=== PATIENT | female | born 1955 | race Caucasian/White ===

== ENCOUNTER 2021-07-27 11:44 | Emergency (ER) | payer OTHER, SELFPAY ==
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
[2021-07-27 11:46] VITALS: BP 168/77; PULSE 84; RESP 20; TEMP 36.2; O2SAT 100
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
[2021-07-27] MEDS: KETOROLAC 30 MG/ML VIAL (*BKC) IM (13:03)
[2021-07-27] MEDS: diazePAM INJ (*CRX) 10 MG/2 ML SYRINGE 5 MG IM (13:03)
[2021-07-27 14:35] VITALS: BP 160/70; PULSE 80; RESP 19; O2SAT 99
== END 2021-07-27 14:35 | disposition home or self-care (01) ==
PROVIDERS: Emergency Provider Emergency Medicine; PCP Family Medicine
DX: S16.1XXA Strain of muscle, fascia and tendon at neck level, initial encounter (principal); S39.012A Strain of muscle, fascia and tendon of lower back, initial encounter; R51.9 Headache, unspecified; V49.40XA Driver injured in collision with unspecified motor vehicles in traffic accident, initial encounter
CPT/HCPCS: 70450; 72125; 72131; 96372; 99284; J1885; J3360

== ENCOUNTER 2022-07-01 13:59 | Outpatient (CLI) | payer MEDICARE, SELFPAY ==
[2022-07-01 14:54] LABS: SARS-CoV-2 RNA PCR Positive
== END 2022-07-01 14:00 | disposition home or self-care (01) ==
PROVIDERS: PCP Family Medicine; Visit Provider Nurse Practitioner Gerontology
DX: U07.1 COVID-19 (principal)
CPT/HCPCS: U0003; U0005

== ENCOUNTER 2022-07-08 10:46 | Outpatient (CLI) | payer MEDICARE, SELFPAY ==
[2022-07-08 11:41] LABS: SARS-CoV-2 RNA PCR Positive
== END 2022-07-08 10:47 | disposition home or self-care (01) ==
PROVIDERS: PCP Family Medicine; Visit Provider Nurse Practitioner Gerontology
DX: U07.1 COVID-19 (principal)
CPT/HCPCS: U0003; U0005

== ENCOUNTER 2023-03-28 21:18 | Emergency (ER) | payer MEDICARE, SELFPAY ==
--- NOTE | ~2023-03-28 | CT_ITS ---
EXAMINATION: CT thoracic spine wo con DATE: 03/29/2023 00:29 INDICATION: Fell off horse. Mid back pain TECHNIQUE: Computed tomography (CT) of the thoracic spine was performed without intravenous contrast. The mA was adjusted according to patient size. Iterative reconstruction technique was employed. Exam dose: 1187.72 mGy-cm total exam DLP. Thoracic spine COMPARISON: None FINDINGS: There is severe degenerative disc disease at C6-7. There is minimal anterolisthesis at C7-T1. There is moderate degenerative spurring of the thoracic spine. No thoracic spine fracture is evident. Moderate anterior wedge chronic compression fracture deformity of L1. Severe degenerative disc diseas e at L1-2 and moderately severe degenerative disease at L2-3. Small sliding hiatal hernia. IMPRESSION: No recent fracture of the thoracic or upper lumbar spine is evident Chronic moderately prominent anterior wedge compression fracture of L1 Severe degenerative disc disease at C6-7, multilevel moderate degenerative disease of the thoracic an d to a greater extent upper lumbar spine Reviewed, dictated and finalized at Location A. Reviewed, dictated and finalized at location A. IMPRESSION: No recent fracture of the thoracic or upper lumbar spine is eviden t Chronic moderately prominent anterior wedge compression fracture of L1 Severe degenerative disc disease at C6-7, multilevel moderate degenerative dise ase of the thoracic and to a greater extent upper lumbar spine
[2023-03-28 21:27] VITALS: BP 185/78; PULSE 77; RESP 20; TEMP 36.1; O2SAT 100
[2023-03-28 23:17] VITALS: BP 178/73; PULSE 82; PULSE 88; RESP 18; TEMP 37.1; O2SAT 100
[2023-03-29] VITALS (11 sets, daily range): BP systolic 128–163; BP diastolic 65–68; PULSE 71–87; RESP 12–18; TEMP 37; O2SAT 97–100
[2023-03-29] MEDS: KETOROLAC 30 MG/ML VIAL (*BKC) IM (00:05)
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
== END 2023-03-29 02:56 | disposition home or self-care (01) ==
PROVIDERS: Emergency Provider Physician Assistant; PCP Family Medicine
DX: S22.008A Other fracture of unspecified thoracic vertebra, initial encounter for closed fracture (principal); I10 Essential (primary) hypertension; E78.5 Hyperlipidemia, unspecified; V80.010A Animal-rider injured by fall from or being thrown from horse in noncollision accident, initial encounter
CPT/HCPCS: 72128; 96372; 99284; J1885

== ENCOUNTER 2024-01-02 14:44 | Outpatient (CLI) | payer MEDICARE, SELFPAY ==
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
== END 2024-01-02 14:45 | disposition home or self-care (01) ==
LOC: ANHIMG 14:46
PROVIDERS: PCP Family Medicine; Visit Provider Student in an Organized Health Care Education/Training Program
DX: R05.9 Cough, unspecified (principal)
CPT/HCPCS: 71046

== ENCOUNTER 2024-10-11 17:37 | Outpatient (CLI) | payer MEDICARE, SELFPAY ==
[2024-10-11 18:38] LABS: Influenza A QL RT-PCR Negative (Negative); Influenza B QL RT-PCR Negative (Negative); RSV RNA, RT-PCR Negative (Negative); SARS-CoV-2 RNA PCR Negative (Negative)
--- OUTSIDE RECORDS SUMMARY | 2024-10-11 18:58 | XMS_ITS | Encounter Summary ---
Author Organization [facility] Address [address] [place] [address] Care Team Providers Care Insulation Cutter Name Role Phone Mimi Trimble MD Primary Care Provider [phone]- [phone] Encounter Details Date Type Department Care Team (Late st Contact Info) Description 03/28/1998 Outpatient Historical [facility] [place] [facility] Social History Tobacco Use Types Packs/Day Years Used Date Smoking Tobacco: Never Assessed Comments Unknown Sex and Gender Information Value Date Recorded Sex Assigned at Not on file Legal Sex Female 4:11 AM SENIOR DIRECTOR CREATIVE SERVICES Gender Identity Not on file Sexual Orientation Not on file documented as of this encounter Plan of Treatment Not on file documented as of this encounter Visit Diagnoses Not on filedocumented in this encounter Care Teams Insulation Cutter Relationship Specialty Start Date End Date Mimi Trimble MD PCP - General 06/07/09 documented as of this encounter
--- OUTSIDE RECORDS SUMMARY | 2024-10-11 18:58 | XMS_ITS | Encounter Summary ---
Author Organization [facility] Address [address] [place] [address] Care Team Providers Care Bilingual Inside Sales Representative Name Role Phone Mimi Trimble MD Primary Care Provider +1- [phone] Encounter Details Date Type Department Care Team (Late st Contact Info) Description 12/13/1999 Outpatient Historical [facility] [place] [facility] Social History Tobacco Use Types Packs/Day Years Used Date Smoking Tobacco: Never Assessed Comments Unknown Sex and Gender Information Value Date Recorded Sex Assigned at Not on file Legal Sex Female 4:11 AM RADIO COMMUNICATION COORDINATOR Gender Identity Not on file Sexual Orientation Not on file documented as of this encounter Plan of Treatment Not on file documented as of this encounter Visit Diagnoses Not on filedocumented in this encounter Care Teams Bilingual Inside Sales Representative Relationship Specialty Start Date End Date Mimi Trimble MD PCP - General 06/07/09 documented as of this encounter
--- OUTSIDE RECORDS SUMMARY | 2024-10-11 18:58 | XMS_ITS | Encounter Summary ---
Author Organization [facility] Address [address] [place] [address] Care Team Providers Care Conservation Assistant Name Role Phone Mimi Trimble MD Primary Care Provider +1- [phone] Encounter Details Date Type Department Care Team (Late st Contact Info) Description 09/07/1999 Outpatient Historical [facility] [place] [facility] Social History Tobacco Use Types Packs/Day Years Used Date Smoking Tobacco: Never Assessed Comments Unknown Sex and Gender Information Value Date Recorded Sex Assigned at Not on file Legal Sex Female 4:11 AM PORCELAIN BUILDUP ASSISTANT Gender Identity Not on file Sexual Orientation Not on file documented as of this encounter Plan of Treatment Not on file documented as of this encounter Visit Diagnoses Not on filedocumented in this encounter Care Teams Conservation Assistant Relationship Specialty Start Date End Date Mimi Trimble MD PCP - General 06/07/09 documented as of this encounter
--- OUTSIDE RECORDS SUMMARY | 2024-10-11 18:58 | XMS_ITS | Encounter Summary ---
Author Organization [facility] Address [address] [place] [address] Care Team Providers Care Male Impersonator Name Role Phone Mimi Trimble MD Primary Care Provider +1- [phone] Encounter Details Date Type Department Care Team (Late st Contact Info) Description 05/24/1999 Outpatient Historical [facility] [place] [facility] Social History Tobacco Use Types Packs/Day Years Used Date Smoking Tobacco: Never Assessed Comments Unknown Sex and Gender Information Value Date Recorded Sex Assigned at Not on file Legal Sex Female 4:11 AM HOMICIDE SQUAD SERGEANT Gender Identity Not on file Sexual Orientation Not on file documented as of this encounter Plan of Treatment Not on file documented as of this encounter Visit Diagnoses Not on filedocumented in this encounter Care Teams Male Impersonator Relationship Specialty Start Date End Date Mimi Trimble MD PCP - General 06/07/09 documented as of this encounter
--- OUTSIDE RECORDS SUMMARY | 2024-10-11 18:58 | XMS_ITS | Encounter Summary ---
Author Organization [facility] Address [address] [place] [address] Care Team Providers Care Sales Support Advisor Name Role Phone Mimi Trimble MD Primary Care Provider +1- [phone] Encounter Details Date Type Department Care Team (Late st Contact Info) Description 06/09/2008 Outpatient Historical [facility] Patrica Norris MD [address] [place] [address] Other Screening Mammogram Social History Tobacco Use Types Packs/Day Years Used Date Smoking Tobacco: Never Assessed Comments Unknown Sex and Gender Information Value Date Recorded Sex Assigned at Not on file Legal Sex Female 4:11 AM TRAFFIC REPRESENTATIVE Gender Identity Not on file Sexual Orientation Not on file documented as of this encounter Plan of Treatment Not on file documented as of this encounter Procedures Procedure Name Priority Date/Time Associated Diagnosis Comments MAMMO SCREENING BILAT Routine 06/09/2008 8:56 AM TRAFFIC REPRESENTATIVE documented in this encounter Results * MAMMO SCREENING BILAT (06/09/2008 8:56 AM TRAFFIC REPRESENTATIVE) Anatomical Region Laterality Modality Breast Bilateral Other 06/09/2008 8:56 AM TRAFFIC REPRESENTATIVE Narrative 06/11/2008 6:28 PM TRAFFIC REPRESENTATIVE [facility] [address], [place] [address] Admit Date: 06/09/2008 CARI DENNISON Sex: F Admit Prov: PATRICA NORRIS Date: 1955 Primary Care Prov: JAYNE WORTHY CMRN: [id number] [id number] Ordering Prov: PATRICA NORRIS R Accession Number: [id number] Interpretation BILATERAL SCREENING MAMMOGRAM. Date: 06/09/2008 History: Routine Screening. Technique: Craniocaudal and mediolateral oblique projections of both breasts were obtained. Comparison: 05/2007 Breast Parenchymal Composition: Scattered fibroglandular densities. Findings: No suspicious mass, suspicious microcalcifications, or architectural distortion in either breast is identified. Since the prior study, there has been no significant interval change. Overall Assessment: BI-RADS category 1: Negative. Recommendation: Annual mammography is recommended. Assessment BIRADS: 1-Negative Recommendation: Normal interval follow-up Dictated by: MIRTHA GARCES Electronically signed by: MIRTHA GARCES 06/11/2008 18:27 Transcribed: 06/11/2008 18:12 AMK Procedure Note Mirtha Garces - 06/11/2008 [id number], [place] [address] Admit Date: 06/09/2008 CARI DENNISON Sex: F Admit Prov: PATRICA NORRIS Date: 1955 Primary Care Prov: JAYNE WORTHY CMRN: [id number] [id number] [facility] Ordering Prov: PATRICA NORRIS R Interpretation BILATERAL SCREENING MAMMOGRAM. Date: 06/09/2008 History: Routine Screening. Technique: Craniocaudal and mediolateral oblique projections ofboth breasts were obtained. Comparison: 05/2007 Breast Parenchymal Composition: Scattered fibroglandular densities. Findings: No suspicious mass, suspicious microcalcifications, or architectural distortion in either breast is identified. Since theprior study, there has been no significant interval change. Overall Assessment: BI-RADS category 1: Negative. Recommendation: Annual mammography is recommended. Assessment BIRADS: 1-Negative Recommendation: Normal interval follow-up Dictated by: MIRTHA GARCES Electronically signed by: MIRTHA GARCES 06/11/2008 18:27 Transcribed: 06/11/2008 18:12 AMK us Patrica Norris MD MAMMO ORDERABLES Final Result documented in this encounter Visit Diagnoses Diagnosis Other screening mammogram documented in this encounter Care Teams Sales Support Advisor Relationship Specialty Start Date End Date Mimi Trimble MD PCP - General 06/07/09 documented as of this encounter
--- OUTSIDE RECORDS SUMMARY | 2024-10-11 18:58 | XMS_ITS | Clinical Summary ---
Author Organization [facility] Address [address] [place] [address] Phone Care Team Providers Care Cooker Tender Name Role Phone Mimi Trimble MD Primary Care Provider [phone] Medications conjugated estrogens (PREMARIN) 0.3 mg Oral Tab Take 0.3 mg by mouth daily. 06/13/2006 Active Family History Medical History Relation Name Comments Breast Cancer Neg Hx Cancer Neg Hx Ovarian Cancer Neg Hx Social History Tobacco Use Types Packs/Day Years Used Date Smoking Tobacco: Never Assessed Comments Unknown Sex and Gender Information Value Date Recorded Sex Assigned at Not on file Legal Sex Female 4:11 AM RETURNING OFFICER Gender Identity Not on file Sexual Orientation Not on file Plan of Treatment Health Maintenance Due Date Last Done Comments DTAP/TDAP/TD VACCINES (1 - Tdap) 10/13/1975 COLORECTAL SCREENING 2001 Colorectal Cancer Screening 2001 FIT-DNA Q 3 years 2001 FIT/FOBT Q 1 year 2001 08/28/1998 Flex Sig/CT Colonography Q 5 years 2001 PNEUMOCOCCAL VACCINE 50+ YEA RS (1 of 1 - PCV) 2006 ZOSTER VACCINE (1 of 2) 2006 BREAST CANCER SCREENING 06/13/2010 06/13/2009, 06/09 OSTEOPOROSIS SCREENING 2021 INFLUENZA VACCINE (#1) 2024 RSV VACCINE (60+ or ) (1 - 1-dose 75+ series) 10/13/2031 Procedures Procedure Name Priority Date/Time Associated Diagnosis Comments MAMMO SCREENING BILAT Routine 06/13/2009 5:08 PM RETURNING OFFICER Screening Mammogram from Last 3 Months or Most Recently Relevant to Health Maintenance Results * MAMMO SCREENING BILAT (06/13/2009 5:08 PM RETURNING OFFICER) Anatomical Region Laterality Modality Breast Bilateral Mammography Impressions 06/16/2009 4:25 PM RETURNING OFFICER : No mammographic evidence of malignancy. OVERALL ASSESSMENT: BIRADS category 1 - Negative Narrative 06/16/2009 4:25 PM RETURNING OFFICER BILATERAL SCREENING MAMMOGRAM REASON FOR THIS EXAMINATION: Annual screening study. FINDINGS: The parenchyma is moderately dense bilaterally. There is no mass, malignant calcification, lymphadenopathy or other sign of malignancy. No change since 05/2007. Procedure Note Juan Francisco Dennison MD - 06/19/2009 BILATERAL SCREENING MAMMOGRAM REASON FOR THIS EXAMINATION: Annual screening study. FINDINGS: The parenchyma is moderately dense bilaterally. There is nomass, malignant calcification, lymphadenopathy or other sign ofmalignancy. No change since 05/2007. IMPRESSION: No mammographic evidence of malignancy. OVERALL ASSESSMENT: BIRADS category 1 - Negative us Susana Frances MD MAMMO ORDERABLES Final Result from Last 3 Months or Most Recently Relevant to Health Maintenance Care Teams Cooker Tender Relationship Specialty Start Date End Date Mimi Trimble MD PCP - General 06/07/09
--- OUTSIDE RECORDS SUMMARY | 2024-10-11 18:58 | XMS_ITS | Encounter Summary ---
Author Organization [facility] Address [address] [place] [address] Care Team Providers Care Stapler Machine Name Role Phone Mimi Trimble MD Primary Care Provider [phone] Encounter Details Date Type Department Care Team (Late st Contact Info) Description 07/26/1999 Outpatient Historical HIS [facility] [place] Read Social History Tobacco Use Types Packs/Day Years Used Date Smoking Tobacco: Never Assessed Comments Unknown Sex and Gender Information Value Date Recorded Sex Assigned at Not on file Legal Sex Female 4:11 AM CONSTRUCTION CONTROLLER Gender Identity Not on file Sexual Orientation Not on file documented as of this encounter Plan of Treatment Not on file documented as of this encounter Visit Diagnoses Not on filedocumented in this encounter Care Teams Stapler Machine Relationship Specialty Start Date End Date Mimi Trimble MD PCP - General 06/07/09 documented as of this encounter
--- OUTSIDE RECORDS SUMMARY | 2024-10-11 18:58 | XMS_ITS | Referral Summary ---
Author Organization [facility] Address [address] [place] [address] Care Team Providers Care Tape Control Skin Or Spar Mill Operator Name Role Phone Mimi Trimble MD Primary Care Provider Almita Judge MD Unavailable [phone] James Hartmann MD Unavailable [phone] Mauricio Chatman DO Unavailable [phone] Bernardino Barber MD Unavailable [phone] Allergies Active Allergy Reactions Criticality Noted Date Comments Penicillins Anaphylaxis High 05/29/2019 Medications multivitamin capsule Take 1 capsule by mouth daily Active MAGNESIUM CARBONATE ORAL Take by mouth daily Active cholecalciferol (VITAMIN D-3) 4,000 unit capsule Take 0.25 capsules (1,000 Units total) by mouth daily Active rosuvastatin (CRESTOR) 10 mg tablet Take 1 tablet (10 mg total) by mouth daily 4 Active irbesartan (AVAPRO) 150 mg tablet Take 1 tablet (150 mg total) by mouth daily 3 Active calcium carbonate-vitami n D3 1500 mg (600 mg elemental) -200 units per tablet Take 1 tablet by mouth daily Active Lactobacillus acidophilus 10 billion cell capsule Take by mouth Active pantoprazole DR (PROTONIX) 40 mg EC tablet Take 1 tablet (40 mg total) by mouth every morning 4 Active letrozole (FEMARA) 2.5 mg tablet TAKE 1 TABLET BY MOUTH DAILY 90 tablet 1 4 Active Active Problems Problem Noted Date Diagnosed Date Personal history of radiation therapy 09/03/2022 Malignant neoplasm of upper- outer quadrant of right breast in female, estrogen receptor positive 02/01/2022 Cancer Staging:Clinical stage from 02/04/2022:Stage IB(cT1c, cN1(f), cM0, G1, ER+, TN+, HER2-) - Signed by Mauricio Chatman DO on 02/04/2022 Pathologic stage from 05/28/2022: pT2, pN1a(sn), G2, ER+, TN+, HER2- - Signed by Almita Judge MD on 05/28/2022 Social History Tobacco Use Types Packs/Day Years Used Date Smoking Tobacco: Former Cigarettes 3 13 1 1982 Smokeless Tobacco: Never Tobacco Cessation:Counseling Given: Not Answered AUDIT-C Answer Date Recorded Q1: How often do you have a drink containing alc ohol? 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 No t on file Last Filed Vital Signs Vital Sign Reading Time Taken Comments Blood Pressure 157/73 04/16/2024 9:11 AM CDT Pulse 72 04/16/2024 9:11 AM CDT Temperature 36.7 C (98.1 F) 04/16/2024 9:11 AM CDT Respiratory Rate 16 04/16/2024 9:11 AM CDT Oxygen Saturation 100% 04/16/2024 9:11 AM CDT Inhaled Oxygen Concentration - - Weight 71.3 kg (157 lb 3.2 oz) 04/16/2024 9:11 A M CDT Height 152.4 cm (5') 08/21/2023 10:42 AM GETTER OPERATOR Body Mass Index 30.7 08/21/2023 10:42 AM GETTER OPERATOR Plan of Treatment Not on file Medical Devices Implanted Type Area Residential Program Coordinator Device Identifier Shelf Expiration Date Model / Serial / Lot Pin Pin Left: Ankle Description:2 pins Plate Plate Left: Ankle Description:1 plate Screw Screw Left: Ankle Description:6 screws [employer] [place] 20ga 5cm Reposition J Curve Wire Centimeter Sourav Stabilizer [id number] - [id number] Implanted:Qty: 1 on 02/25/2022 at [facility] [employer] [id number] 11/21/2026 [id number] / / [id number] Procedures Procedure Name Priority Date/Time Associated Diagnosis Comments DIAGNOSTIC MAMMOGRAM BILATERAL W CHRISTINE Schedule Routine, Read Routine (OP Routine) 12/01/2023 8:17 AM CDT Malignant neoplasm of upper-outer quadrant of right female breast, unspecified estrogen receptor status (HCC) DEXA AXIAL SKELETON BONE DENSITY 1 OR MORE SITES Schedule Routine, Read Routine (OP Routine) 10/20/2023 1:08 PM CDT Malignant neoplasm of upper-outer quadrant of right breast in female, estrogen receptor positive (HCC) superintendent terminal (current) use of aromatase inhibitors Screening for osteoporosis from Last 3 Months or Most Recently Relevant to Health Maintenance Results * Diagnostic Mammogram Bilateral W Christine (12/01/2023 8:17 AM CDT) Anatomical Region Laterality Modality Breast Bilateral Mammography 12/01/2023 8:22 AM CDT Narrative 12/01/2023 8:25 AM CDT EXAM DESCRIPTION: DIAGNOSTIC MAMMOGRAM BILATERAL W CHRISTINE REASON FOR STUDY: 68-year-old female with history of right breast cancer in 2021 status post breast conserving therapy. TECHNIQUE: CC and MLO views of the bilateral breasts were obtained with digital technique using breast tomosynthesis with C view. COMPARISON: 11/28/2022, 02/25/2022, 01/25/2022, 01/02/2022, 11/27/2021 FINDINGS: DENSITY: There are scattered areas of fibroglandular density. MAMMOGRAM FINDINGS: Expected postoperative/posttreatment findings in the right breast (including lumpectomy cavity in the upper outer quadrant, posterior depth) have not suspiciously changed in the interval. There are benign coarse dystrophic calcifications in the right breast. There are no new suspicious finding in either breast on mammogram. IMPRESSION: 1. Unchanged expected mammographic appearance of the right breast following breast conserving therapy. 2. No mammographic evidence of malignancy in either breast. Per C guidelines, diagnostic mammogram in 1 year is recommended. The patient has been notified of these results and recommendations. BIRADS: 2 Benign findings. THIS IS AN ELECTRONICALLY VERIFIED FINAL REPORT 12/01/2023 8:25 AM - Electronically signed by Jabari Cintron M.D. MD: Report ID: [id number] Reading Location: [facility] Bernardino Barber MD IM MAMMO PROCEDURES Final Res ult * Dexa Axial Skeleton Bone Density 1 or 2 Site (10/20/2023 1:08 PM CDT) Anatomical Region Laterality Modality Body N/A Mammography 10/20/2023 2:01 PM CDT Narrative 10/20/2023 2:04 PM CDT EXAM DESCRIPTION: DEXA AXIAL SKELETON BONE DENSITY 1 OR MORE SITES REASON FOR STUDY: 68 y/o year old F with given history of: osteoporosis screening, hx breast ca, retirement use of AI. History of drinking 3+ alcoholic drinks per day. Patient has taken/is taking vitamin-D, calcium and hormone replacement therapy. Residential Program Coordinator/Model: [employer] A (S/N [id number]) CLINICAL INFORMATION: Current height: 60 inches Maximum height: 62 inches Weight: 154 pounds Risk factors: 3+ alcoholic drinks per day. COMPARISON: None available FINDINGS: AP LUMBAR SPINE L1-L4: Total BMD is 1.123 g/cm2 T-score is 0.7 LEFT HIP: Total BMD is 0.864 g/cm2 T-score is -0.6 Femoral neck BMD is 0.683 g/cm2 T-score is -1.5 FRAX: 10 year risk for a major osteoporotic fracture is 11 %, 10 year risk for a hip fracture is 1.6 % IMPRESSION: Low bone mass REFERENCE: Bone mineral density: T-Score: Normal (T-score above or = -1.0) Low bone mass (T-score between -1.0 and -2.5) replaces the previously used term osteopenia Osteoporosis (T-score = or below -2.5) Z-Score: Within the expected range for age (Z-score above -2.0) Below the expected range for age (Z-score is -2.0 or below) Please see below follow up recommendations. Medical evaluation for secondary causes of low bone mineral density may be appropriate. FRAX is a World Health Organization validated fracture risk assessment tool that calculates a person's 10 year probability of a major osteoporosis related fracture and hip fracture. According to the National Osteoporosis Foundation guidelines, postmenopausal women and men age 50 or older with low bone mass and a 10 year probability of a major osteoporosis related fracture = or greater than 20% or a 10 year probability of a hip fracture = or greater than 3% should be considered for pharmacological treatment for the prevention of osteoporosis. For further information, including treatment recommendations, please refer to the 2019 ISCD Official Positions (http://www.iscd.org) and the NOF's Clinician's Guide to Prevention and Treatment of Osteoporosis (http://www.nof.org/professionals/clinical-guidelines) THIS IS AN ELECTRONICALLY VERIFIED FINAL REPORT 10/20/2023 2:04 PM - Electronically signed by Jennifer Aquino M.D. TW: TW Report ID: [id number] Reading Location: [id number] Procedure Note Jennifer Aquino MD - 10/20/2023 EXAM DESCRIPTION: DEXA AXIAL SKELETON BONE DENSITY 1 OR MORE SITES REASON FOR STUDY: 68 y/o year old F with given history of:osteoporosis screening, hx breast ca, retirement use of AI. History of drinking 3+alcoholic drinks per day. Patient has taken/is taking vitamin-D, calcium andhormone replacement therapy. Residential Program Coordinator/Model: [employer] A (S/N [id number]) CLINICAL INFORMATION: Current height: 60 inches Maximum height: 62 inches Weight: 154 pounds Risk factors: 3+ alcoholic drinks per day. COMPARISON: None available FINDINGS: AP LUMBAR SPINE L1-L4: Total BMD is 1.123 g/cm2 T-score is 0.7 LEFT HIP: Total BMD is 0.864 g/cm2 T-score is -0.6 Femoral neck BMD is 0.683 g/cm2 T-score is -1.5 FRAX: 10 year risk for a major osteoporotic fracture is 11 %, 10 year risk for ahip fracture is 1.6 % IMPRESSION: Low bone mass REFERENCE: Bone mineral density: T-Score: Normal (T-score above or = -1.0) Low bone mass (T-score between -1.0 and -2.5) replaces thepreviously used term osteopenia Osteoporosis (T-score = or below -2.5) Z-Score: Within the expected range for age (Z-score above -2.0) Below the expected range for age (Z-score is -2.0 or below) Please see below follow up recommendations. Medical evaluation forsecondary causes of low bone mineral density may be appropriate. FRAX is a World Health Organization validated fracture risk assessmenttool that calculates a person's 10 year probability of a major osteoporosisrelated fracture and hip fracture. According to the National OsteoporosisFoundation guidelines, postmenopausal women and men age 50 or older with low bonemass and a 10 year probability of a major osteoporosis related fracture = or greater than 20% or a 10 year probability of a hip fracture = or greaterthan 3% should be considered for pharmacological treatment for the preventionof osteoporosis. For further information, including treatment recommendations, please referto the 2019 ISCD Official Positions (http://www.iscd.org) and the NOF's Clinician's Guide to Prevention and Treatment of Osteoporosis (http://www.nof.org/professionals/clinical-guidelines) THIS IS AN ELECTRONICALLY VERIFIED FINAL REPORT 10/20/2023 2:04 PM - Electronically signed by Jennifer Aquino M.D. TW: CINDI Report ID: [id number] Reading Location: [id number] Mauricio Chatman DO IM DXA PROCEDURES Final Res ult from Last 3 Months or Most Recently Relevant to Health Maintenance Insurance MEDIC[facility] AD[facility]ANT[facility] Address: [address] [place], [place] [id number] MEDICARE ADVANT[facility] Address: [address] [place] [phone] MEDICARE ADVANTAGE [facility] Address: [address] [place] [phone] Advance Directives For more information, please contact: [phone] * Full Code (Latest Code Status on File) Date Activated Date Inactivated Comments 02/25/2022 2:36 PM 02/25/2022 10:01 PM Care Teams Tape Control Skin Or Spar Mill Operator Relationship Specialty Start Date End Date Mimi Trimble MD [address] [place] [address] PCP - General Family Medicine 01/02/22 Almita Judge MD [address] [facility] [address] [place] [address] Radiation Oncologist Radiation Oncology 02/11/22 James Hartmann MD [address] [place] [address] [id number] Surgeon Surgery 02/11/22 Mauricio Chatman DO [address] [place] [address] [id number] Medical Oncologist/Tray Delivery Aide Hematology and Oncology 02/11/22 Bernardino Barber MD [address] [place] [id number] Surgeon General Surgery 09/19/22
--- OUTSIDE RECORDS SUMMARY | 2024-10-11 18:58 | XMS_ITS | Encounter Summary ---
Author Organization [facility] Address 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
--- OUTSIDE RECORDS SUMMARY | 2024-10-11 18:58 | XMS_ITS ---
Author Organization [facility] Address [address] [place] [address] Care Team Providers Care Berry Planter Name Role Phone Mimi Trimble MD Primary Care Provider Almita Judge MD Unavailable [phone] James Hartmann MD Unavailable [phone] Mauricio Chatman DO Unavailable [phone] Bernardino Barber MD Unavailable [phone] Active Problems Problem Noted Date Diagnosed Date Personal history of radiation therapy 09/03/2022 Malignant neoplasm of upper- outer quadrant of right breast in female, estrogen receptor positive 02/01/2022 Cancer Staging:Clinical stage from 02/04/2022:Stage IB(cT1c, cN1(f), cM0, G1, ER+, VA+, HER2-) - Signed by Mauriico Chatman DO on 02/04/2022 Pathologic stage from 05/28/2022: pT2, pN1a(sn), G2, ER+, VA+, HER2- - Signed by Almita Judge MD on 05/28/2022 Current Treatment and Therapy Plans No current plan information found. Past Treatment and Therapy Plans No past plan information found. Radiation Treatments * Course C1 R BRS_LNs 22 06/05/2022 - 08/08/2022 Treatment Period Energy Fraction Dose Fractions Total Dose Plans Planned RUOQ BRS BST 08/01/2022 - 08/08/2022 200 5 / 1,000 R BREAST 06/05/2022 - 07/30/2022 200 25 / 5,000 R SCV 06/05/2022 - 07/30/2022 200 25 / 5,000 Reference Points Delivered BST DPV 08/01/2022 - 08/08/2022 1,000 SCV DPV 06/05/2022 - 07/30/2022 5,000 armstrong dpv 06/05/2022 - 07/30/2022 5,000
--- OUTSIDE RECORDS SUMMARY | 2024-10-11 18:58 | XMS_ITS | Clinical Summary ---
Author Organization [facility] Address [address] [place] [address] Care Team Providers Care Branch Or Department Chief Librarian Name Role Phone Mimi Trimble MD Primary Care Provider Almita Judge MD Unavailable [phone] James Hartmann MD Unavailable [phone] Mauricio Chatman DO Unavailable [phone] Bernardino Barber MD Unavailable [phone] Allergies Active Allergy Reactions Criticality Noted Date [...] from 02/04/2022:Stage IB(cT1c, cN1(f), cM0, G1, ER+, ID+, HER2-) - Signed by Mauricio Chatman DO on 02/04/2022 Pathologic stage from 05/28/2022: pT2, pN1a(sn), G2, ER+, ID+, HER2- - Signed by Almita Judge MD on 05/28/2022 Surgical History Surgery Date Site/Laterality Comments CHOLECYSTECTOMY 07/21/2009 - 07/20/2010 HYSTERECTOMY 07/21/2003 - 07/20/2004 total OOPHORECTOMY 07/21/2003 - 07/20/2004 Bilateral US GUIDED BIOPSY LYMPH NODE SUPERFICIAL LEFT 01/25/2022 N/A BREAST BIOPSY 01/25/2022 Right COLONOSCOPY ANKLE FRACTURE SURGERY 07/21/2000 - 07/20/2001 Left TONSILLECTOMY as a child CARPAL TUNNEL RELEASE Right Medical History Medical History Date Comments Breast cancer (HCC) Family History Medical History Relation Name Comments No Known Problems Father ORGAN FAILURE Maternal Grandmother Kidney failure Mother Heart attack Paternal Grandmother Breast cancer Neg Hx Relation Name Status Comments Father Maternal Grandmother Mother Paternal Grandmother Social History Tobacco Use Types Packs/Day Years Used Date Smoking Tobacco: Former Cigarettes 3 13 1 0 - 1982 Smokeless Tobacco: Never Tobacco Cessation:Counseling Given: [...] on file Legal Sex Female 12:17 AM DIRECTOR OF ONLINE EDUCATION Gender Identity Not on file Sexual Orientation Not on file 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 Obstetrics History Para Term AB IAB SAB Ectopic Multiple Livin g Live Births 0 0 0 0 0 0 0 0 0 0 0 Last Filed Vital Signs Vital Sign Reading [...] Height 152.4 cm (5') 08/21/2023 10:42 AM DIRECTOR OF ONLINE EDUCATION Body Mass Index 30.7 08/21/2023 10:42 AM DIRECTOR OF ONLINE EDUCATION Plan of Treatment Health Maintenance Due Date Last Done Comments Colon Cancer Screening-Colonoscopy 1955 Depression Screening 1955 Hepatitis C Screening 1955 DTaP/Tdap/Td Vaccine (1 - Tdap) 10/13/1967 Hepatitis B Screening 1974 Pneumococcal vaccine 65+ (1 of 2 - PCV) 10/13/1975 Zoster Vaccine (1 of 2) 10/13/1975 Well Visit 65+ 2021 Fall Risk Assessment 02/25/2023 02/25/2022 Influenza Vaccine (#1) 2024 08/18/2019 Breast Cancer Screening-Mammogram 11/30/2024 12/01/2023, 11/28/2022, 01/02/2022, Additional history exists Osteoporosis Screening-Bone Density Scan 10/19/2025 10/20/2023 Medical Devices Implanted Type Area Environmental Service Aide Device Identifier Shelf Expiration Date Model / Serial / Lot Pin Pin Left: Ankle Description:2 pins Plate Plate Left: Ankle Description:1 plate Screw Screw Left: Ankle Description:6 screws [employer] [place] 20ga 5cm Reposition J Curve Wire [employer] Sourav Stabilizer [id number] - [id number] Implanted:Qty: 1 on 02/25/2022 at [facility] [employer] [id number] 11/21/2026 [id number] / / [id number] Procedures Procedure Name Priority Date/Time Associated Diagnosis [...] breast in female, estrogen receptor positive (HCC) 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 Per [facility] guidelines, diagnostic mammogram in 1 year is recommended. The patient has been notified of these results and recommendations. BIRADS: 2 Benign findings. THIS IS AN ELECTRONICALLY VERIFIED FINAL REPORT 12/01/2023 8:25 AM - Electronically signed by Jabari Cintron M.D. MD: Report ID: [id number] Reading Location: [facility] us Bernardino Barber MD IMG MAMMO PROCEDURES Final Res ult * Dexa Axial Skeleton Bone Density 1 or 2 Site (10/20/2023 1:08 PM CDT) Anatomical Region Laterality Modality Body N/A Mammography 10/20/2023 2:01 PM CDT Narrative 10/20/2023 2:04 PM CDT EXAM DESCRIPTION: DEXA AXIAL SKELETON BONE DENSITY 1 OR MORE SITES REASON FOR STUDY: 68 y/o year old F with given history of: osteoporosis screening, hx breast ca, shelter use of AI. History of drinking 3+ alcoholic drinks per day. Patient has taken/is taking vitamin-D, calcium and hormone replacement therapy. Environmental Service Aide/Model: [employer] A (S/N [id number]) CLINICAL INFORMATION: Current height: 60 inches Maximum [...] Jennifer Aquino M.D. TW: TW Report ID: [id number] Reading Location: [id number] Procedure Note Jennifer Aquino MD - 10/20/2023 EXAM DESCRIPTION: DEXA AXIAL SKELETON BONE DENSITY 1 OR MORE SITES REASON FOR STUDY: 68 y/o year old F with given history of:osteoporosis screening, hx breast ca, shelter use of AI. History of drinking 3+alcoholic drinks per day. Patient has taken/is taking vitamin-D, calcium andhormone replacement therapy. Environmental Service Aide/Model: [employer] Horizon A (S/N [id number]) CLINICAL INFORMATION: Current height: 60 inches Maximum [...] Jennifer Aquino M.D. TW: CINDI Report ID: [id number] Reading Location: [place] [address] Mauricio Chatman DO IMG DXA PROCEDURES Final Res ult from Last 3 Months or Most Recently Relevant to Health Maintenance Insurance [facility] MEDICARE ADVANTAGE MEDICARE ADVANTAGE MEDICARE ADVANTAGE Advance Directives For more information, please contact: [phone] * Full Code (Latest Code Status on File) Date Activated Date Inactivated Comments 02/25/2022 2:36 PM 02/25/2022 10:01 PM Care Teams Branch Or Department Chief Librarian Relationship Specialty Start Date End Date Mimi Trimble MD [address] [place] [id number] PCP - General Family Medicine 01/02/22 Almita Judge MD [address] [place] [id number] Radiation Oncologist Radiation Oncology 02/11/22 James Hartmann MD [address] [place] [address] Surgeon Surgery 02/11/22 Mauricio Chatman DO [address] [place] [address] Medical Oncologist/Dentofacial Orthopedics Dentist Hematology and Oncology 02/11/22 Bernardino Barber MD [address] [place] [id number] Surgeon General Surgery 09/19/22
--- OUTSIDE RECORDS SUMMARY | 2024-10-11 18:58 | XMS_ITS | Encounter Summary ---
Author Organization [facility] Address 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
== END 2024-10-11 17:38 | disposition home or self-care (01) ==
LOC: ANHLAB 17:38
PROVIDERS: PCP Family Medicine; Visit Provider Physician Assistant Medical
DX: R50.9 Fever, unspecified (principal); R05.9 Cough, unspecified; Z20.822 Contact with and (suspected) exposure to COVID-19
CPT/HCPCS: 87637